=== PATIENT | female | born 1955 | race Caucasian/White ===

== ENCOUNTER 2021-09-04 22:13 | Emergency (ER) | payer MEDICAID, MEDICARE, OTHER ==
[2021-09-04] MEDS ORDERED: HYDROmorphone 1 MG/ML Syringe IVPUSH ONE (22:18)
[2021-09-04] MEDS ORDERED: Sodium Chloride 0.9% 10 ML Syringe FLUSH PRN (22:18)
--- NOTE | 2021-09-04 22:21 | EDM.PDOC ---
ED HPI GENERAL MEDICAL PROBLEM - General Chief Complaint: Head Injury Stated Complaint: FALL AND HEAD INJURY Time Seen by Provider: 09/04/21 22:15 Source of Information: Reports: Patient, Old Records, RN History Limitations: Reports: No Limitations - History of Present Illness INITIAL COMMENTS - FREE TEXT/NARRATIVE: 65 yo female presents along with her son after falling off a short step stool and lacerating her L forehead and injuring her L wrist. No LOC or MALIK. No neck pain. No nausea. Is not sure about tetanus status. Says her last BP measurement was about 2 yrs ago. Onset: Today, Sudden Onset Date: 09/04/21 Duration: Minutes: Location: Reports: Face, Upper Extremity, Left Quality: Reports: Ache (wrist) Severity: Moderate Improves with: Reports: Immobilization Worsens with: Reports: Movement Context: Reports: Trauma Associated Symptoms: Reports: No Other Symptoms Treatments FINE ARTS CHAIR: Reports: Other (see below) (none) Left Wrist Pain Score (Numeric/FACES): 10 - Related Data Allergies Allergy/AdvReac Type Severity Reaction Status Date / Time ciprofloxacin Allergy Cannot Verified 09/04/21 22:18 Remember Penicillins Allergy Cannot Verified 09/04/21 22:18 Remember sulfamethoxazole Allergy Cannot Verified 09/04/21 22:18 Remember Home Meds: Home Meds Albuterol Sulfate [Proair Hfa] 2 puff IH QID PRN 08/04/13 [History] Fluticasone/Salmeterol [Advair 100-50] 1 puff INH DAILY 09/04/21 [History] ED ROS GENERAL - Review of Systems Review Of Systems: See Below Constitutional: Reports: No Symptoms HEENT: Reports: No Symptoms Respiratory: Reports: No Symptoms Cardiovascular: Reports: No Symptoms GI/Abdominal: Reports: No Symptoms. Denies: Nausea : Reports: No Symptoms Musculoskeletal: Reports: Joint Pain (L wrist). Denies: Neck Pain Skin: Reports: Wound (laceration L forehead) Neurological: Reports: No Symptoms. Denies: Dizziness, Headache Psychiatric: Reports: No Symptoms ED EXAM, HEAD INJURY - Physical Exam Exam: See Below Exam Limited By: No Limitations General Appearance: Alert, WD/WN, Mild Distress Head: Normocephalic Nexus Criteria: No: Evidence of Intoxication Eyes: Bilateral Eye: Normal Inspection, PERRL Ears: Normal External Exam, Normal Canal, Hearing Grossly Normal Nose: Normal Inspection, No Blood. No: Clear Rhinorrhea Throat/Mouth: Normal Inspection, Normal Lips, Normal Oropharynx, Normal Voice, No Airway Compromise Neck: Non-Tender, Full Range of Motion, Normal Inspection. No: Limited Range of Motion Respiratory: No Respiratory Distress, Lungs Clear, No Accessory Muscle Use Cardiovascular: Regular Rate, Rhythm Extremities: Joint Swelling (mild of L wrist), Limited Range of Motion (L wrist). 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 As Tested, No Motor/Sensory Deficits, Alert, Normal Mood/Affect, Oriented x 3 Skin: Normal Color, Warm/Dry - [place] Coma Score Best Eye Response ([place]): (4) Open Spontaneously Best Verbal Response ([place]): (5) Oriented Best Motor Response ([place]): (6) Obeys Commands [place] Total: 15 ED LACERATION/WOUND & ROMI PROC - Laceration/Wound Repair Left Forehead Lac/wound length in cm: 2.6 Appearance: Subcutaneous, Linear, Clean Anesthetic Type: Local Local Anesthesia - Lidocaine (Xylocaine): 1% with EPI Local Anesthetic Volume: Other (6) Skin Prep: Saline Saline irrigation (cc's): 30 Exploration/Debridement/Repair: Wound Explored Closed with: Sutures Suture Size: 5-0 # of Sutures: 5 Suture Type: Nylon, Interrupted, Simple, Mattress Drain Placement: No Tetanus Status Addressed: Yes (2018) Complications: No - Splinting Left Upper Extremity Splint Site: L hand and wrist Pre-procedure NV status: Normal Post-procedure NV status: Normal Splint Material: Other (OrthoGlass) Splint Design: Volar Applied & Form Fitted By: Provider Provider Post-Splint Application NV Check: NV Status Normal, Good Position Complications: No Course - Vital Signs Last Recorded V/S: Last Vital Signs Temp 36.3 C 09/04/21 22:14 Pulse 104 H 09/04/21 22:14 Resp 20 09/04/21 22:14 BP 188/110 H 09/04/21 23:14 Pulse Ox 99 09/04/21 22:14 - Orders/Labs/Meds Orders: Active Orders 24 hr Category Date Time Status Hand Comp Min 3V Lt [CR] Stat Exams 09/04/21 22:36 Ordered Wrist Comp Min 3V Lt [CR] Stat Exams 09/04/21 22:19 Ordered Sodium Chloride 0.9% [Saline Flush] Med 09/04/21 22:18 Active 10 ml FLUSH ASDIRECTED PRN Saline Lock Insert [OM.PC] Routine Oth 09/04/21 22:18 Ordered Medication Orders Sodium Chloride (Sodium Chloride 0.9% 10 Ml Syringe) 10 ml FLUSH ASDIRECTED PRN PRN Reason: Keep Vein Open Last Admin: 09/04/21 22:30 Dose: 10 ml Documented by: PRITI Lamass: Medications Generic Name Dose Route Start Last Admin Trade Name Freq PRN Reason Stop Dose Admin Sodium Chloride 10 ml 09/04/21 22:18 09/04/21 22:30 Sodium Chloride 0.9% 10 Ml Syringe FLUSH 10 ml ASDIRECTED PRN Administration Keep Vein Open Discontinued Medications Generic Name Dose Route Start Last Admin Trade Name Freq PRN Reason Stop Dose Admin Bacitracin 1 dose 09/04/21 22:38 09/04/21 23:14 Bacitracin Oint 1 Gm U/D Packet TOP 09/04/21 22:39 1 dose ONETIME ONE Administration Clonidine HCl 0.1 mg 09/04/21 22:44 09/04/21 23:14 Clonidine 0.1 Mg Tab PO 09/04/21 22:45 0.1 mg ONETIME ONE Administration Hydromorphone HCl 1 mg 09/04/21 22:18 09/04/21 22:30 Hydromorphone 1 Mg/Ml Syringe IVPUSH 09/04/21 22:19 1 mg ONETIME ONE Administration - Radiology Interpretation Free Text/Narrative:: L wrist X-ray-degen changes only L hand X-ray-neg Departure - Departure Time of Disposition: 23:40 Disposition: Home, Self-Care 01 Condition: Fair Clinical Impression: Laceration of forehead Qualifiers: Encounter type: initial encounter Qualified Code(s): S01.81XA - Laceration without foreign body of other part of head, initial encounter Injury of left hand Qualifiers: Encounter type: initial encounter Qualified Code(s): S69.92XA - Unspecified injury of left wrist, hand and finger(s), initial encounter - Discharge Information *PRESCRIPTION DRUG MONITORING PROGRAM REVIEWED*: No *COPY OF PRESCRIPTION DRUG MONITORING REPORT IN PATIENT KE: No Instructions: Laceration Care, Adult, [id number] Referrals: Jignesh Mcdaniel Sr, MD [Primary Care Provider] - Forms: ED Department Discharge Additional Instructions: Clean your laceration twice a day with 1/2 water and 1/2 peroxide. Dry. Apply antibiotic ointment and a new dressing if needed. Take ibuprofen and/or acetaminophen for pain relief. If you need additional pain relief substitute [place] for the acetaminophen. Wear your splint for protection. See your doctor for suture removal and recheck on your hand in 6-7 days. Sepsis Event Note (ED) - Evaluation Sepsis Screening Result: No Definite Risk - Focused Exam Vital Signs: Vital Signs Temp Pulse Resp BP BP Pulse Ox 09/04/21 23:14 188/110 H 09/04/21 22:14 36.3 C 104 H 20 215/121 H 99 - My Orders Last 24 Hours: My Active Orders 09/04/21 22:18 Sodium Chloride 0.9% [Saline Flush] 10 ml FLUSH ASDIRECTED PRN Saline Lock Insert [OM.PC] Routine 09/04/21 22:19 Wrist Comp Min 3V Lt [CR] Stat 09/04/21 22:36 Hand Comp Min 3V Lt [CR] Stat - Assessment/Plan Last 24 Hours: My Active Orders 09/04/21 22:18 Sodium Chloride 0.9% [Saline Flush] 10 ml FLUSH ASDIRECTED PRN Saline Lock Insert [OM.PC] Routine 09/04/21 22:19 Wrist Comp Min 3V Lt [CR] Stat 09/04/21 22:36 Hand Comp Min 3V Lt [CR] Stat
[2021-09-04] MEDS ORDERED: Bacitracin Oint 1 GM U/D Packet TOP ONE (22:38)
[2021-09-04] MEDS ORDERED: cloNIDine 0.1 MG Tab PO ONE (22:44)
--- NOTE | 2021-09-05 09:03 | CR ---
Wrist Comp Min 3V Lt, Hand Comp Min 3V Lt CLINICAL HISTORY: Fall, pain FINDINGS: There is no acute fracture or dislocation within the left wrist. There is very severe osteoarthritic change in the scaphoid and trapezium articulations Impression: No fracture seen Severe degenerative changes Hand Comp Min 3V Lt CLINICAL HISTORY: Fall FINDINGS: There is no acute fracture or dislocation of the hand. There are very severe degenerative changes at the trapezial articulations. There is narrowing of the interphalangeal joints. Bones appear osteopenic. IMPRESSION: Diffuse osteoarthritic change Osteopenia No fracture
== END 2021-09-04 23:59 | disposition home or self-care (01) ==
LOC: JP.ED 22:13
DX: S01.81XA Laceration without foreign body of other part of head, initial encounter (principal); S69.92XA Unspecified injury of left wrist, hand and finger(s), initial encounter; Z88.0 Allergy status to penicillin; Z88.1 Allergy status to other antibiotic agents; W17.89XA Other fall from one level to another, initial encounter
CPT/HCPCS: 12013; 29125; 73110; 73130; 96374; 99283; A9270; J1170